=== PATIENT | female | born 1975 | race Caucasian/White ===

== ENCOUNTER 2017-05-03 07:37 | Inpatient (IN) | payer MEDICAID ==
[~2017-05-03] VITALS: Ht 154.9 cm; Wt 74.8 kg
[2017-05-03] MEDS ORDERED: DEXT 5%/LR + PITOCIN 20UNITS/L 1,000 ML IV SCH ×3 (08:41→22:15)
[2017-05-03] MEDS ORDERED: CARBOPROST TROMETHAMINE 250 MCG/ML AMPUL IM PRN (08:45)
[2017-05-03] MEDS ORDERED: RHO(D) IMMUNE GLOBULIN 300 MCG/SYR IM ONE (08:45)
[2017-05-03] MEDS ORDERED: NALOXONE HCL 0.4 MG/ML 1ML VIAL IM PRN (08:45)
[2017-05-03] MEDS ORDERED: METHYLERGONOVINE MALEATE 0.2 MG/ML IM PRN (08:45)
[2017-05-03] MEDS ORDERED: LIDOCAINE HCL 1% 20ML VIAL (Pyxis) INJ INFIL SCH (08:45)
[2017-05-03] MEDS: LACTATED RINGERS 1,000 ML IV SCH ×2 (10:28→15:45)
[2017-05-03] MEDS: MISOPROSTOL 100MCG TABLET VG SCH ×2 (10:29→14:28)
[2017-05-03 10:35] LABS: BASOPHILS % 0.6 % (0.0-2.0); EOSINOPHILS % 0.9 % (0.0-5.0); HEMATOCRIT. 32.6 % (36.0-48.0); HEMOGLOBIN. 10.7 g/dL (12.0-16.0); LYMPHOCYTES % 18.7 % (20.0-50.0); MEAN CORPUSCULAR HEMOGLOBIN 25.3 pg (28.0-32.0); MEAN CORPUSCULAR VOLUME 76.9 fL (81.0-99.0); MONOCYTES % 10.4 % (2.0-8.0); NEUTROPHILS % 69.4 % (40.0-76.0); PLATELET 233 x1000/uL (130-400); RED BLOOD CELL COUNT 4.24 mill/uL (4.2-5.4); RED CELL DISTRIBUTION WIDTH 27.1 % (11.6-14.6)
[2017-05-03 10:42] LABS: CLARITY URINE CLEAR (CLEAR); COLOR URINE YELLOW (YELLOW); GLUCOSE URINE NEGATIVE (NEGATIVE); KETONES URINE NEGATIVE (NEGATIVE); LEUKOCYTE ESTERASE URINE 1+ (NEGATIVE); NITRITE URINE NEGATIVE (NEGATIVE); OCCULT BLOOD URINE TRACE (NEGATIVE); PH URINE 6.5 (4.5-8.0); PROTEIN URINE TRACE (NEGATIVE); SPECIFIC GRAVITY URINE 1.024 (1.005-1.030)
[2017-05-03 10:44] LABS: INR 0.9; PARTIAL THROMBOPLASTIN TIME 24.1 sec (23.4-31.0); PROTHROMBIN TIME 9.7 sec (9.4-11.6)
[2017-05-03 11:11] LABS: *AMPHETAMINES SCREEN URINE NEGATIVE (NEGATIVE); *BARBITURATES SCREEN URINE NEGATIVE (NEGATIVE); *BENZODIAZEPINES SCREEN URINE NEGATIVE (NEGATIVE); *COCAINE SCREEN URINE NEGATIVE (NEGATIVE); CANNABINOID URINE SCREEN NEGATIVE (NEGATIVE); METHADONE URINE SCREEN NEGATIVE (NEGATIVE); OPIATES URINE SCREEN NEGATIVE (NEGATIVE); PHENCYCLIDINE URINE SCREEN NEGATIVE (NEGATIVE)
[2017-05-03 11:55] LABS: PLATELET ESTIMATE NORMAL
[2017-05-03 12:43] LABS: HEPATITIS B SURFACE ANTIGEN NEGATIVE; RUBELLA IGG 63.7 IU/mL (4.99-10)
[2017-05-03] MEDS: BUTORPHANOL TARTRATE 2 MG/ML VIAL IV PRN ×2 (15:58→20:14)
[2017-05-03] MEDS ORDERED: BENZOCAINE/LANOLIN/ALOE VERA SPRAY TOP PRN (22:15)
[2017-05-03] MEDS ORDERED: IBUPROFEN 400MG TABLET PO PRN (22:15)
[2017-05-03] MEDS ORDERED: ACETAMINOPHEN WITH CODEINE 300/30MG TABLET PO PRN (22:15)
[2017-05-03] MEDS ORDERED: RHO(D) IMMUNE GLOBULIN 300 MCG/SYR IM PRN (22:15)
[2017-05-04] MEDS: IBUPROFEN 800MG TABLET PO PRN ×2 (00:58→20:11)
[2017-05-04 01:00] VITALS: BP 102/52
[2017-05-04 02:00] VITALS: BP 101/55
[2017-05-04 04:00] VITALS: BP 105/54
[2017-05-04 06:44] LABS: BASOPHILS % 0.5 % (0.0-2.0); EOSINOPHILS % 0.2 % (0.0-5.0); HEMATOCRIT. 27.6 % (36.0-48.0); HEMOGLOBIN. 8.9 g/dL (12.0-16.0); LYMPHOCYTES % 11.1 % (20.0-50.0); MEAN CORPUSCULAR HEMOGLOBIN 25.1 pg (28.0-32.0); MEAN CORPUSCULAR VOLUME 77.5 fL (81.0-99.0); MEAN PLATELET VOLUME 9.5 fl (7.4-10.4); MONOCYTES % 8.8 % (2.0-8.0); NEUTROPHILS % 79.4 % (40.0-76.0); PLATELET 144 x1000/uL (130-400); RED BLOOD CELL COUNT 3.56 mill/uL (4.2-5.4)
[2017-05-04 11:54] VITALS: BP 109/61
[2017-05-04 20:00] VITALS: BP 104/64
[2017-05-05 05:00] VITALS: BP 102/61
[2017-05-05 07:45] VITALS: BP 99/44
[2017-05-05 08:12] VITALS: BP 102/61
[2017-05-05] MEDS: IBUPROFEN 800MG TABLET PO PRN (08:12)
[2017-05-05] MEDS ORDERED: INFLUENZA VIRUS VACCINE 0.5ML SYR IM ONE (10:00)
== END 2017-05-05 13:30 | disposition home or self-care (01) | DRG 560 ==
LOC: OBSVTOIN 07:37 → L&D 07:37 → 7EST PP/OB 05-04 01:30
PROVIDERS: ADMIT Obstetrics & Gynecology; ATTEND Obstetrics & Gynecology
PROC: 10E0XZZ Delivery of Products of Conception, External Approach (ICD-10-PCS; 2017-05-03)
PROC: 10907ZC Drainage of Amniotic Fluid, Therapeutic from Products of Conception, Via Natural or Artificial Opening (ICD-10-PCS; 2017-05-03)
PROC: 0KQM0ZZ Repair Perineum Muscle, Open Approach (ICD-10-PCS; principal; 2017-05-03 21:58)
DX: O70.1 Second degree perineal laceration during delivery (principal); D64.9 Anemia, unspecified; O09.523 Supervision of elderly multigravida, third trimester; O90.81 Anemia of the puerperium; Z3A.40 40 weeks gestation of pregnancy; Z37.0 Single live birth
CPT/HCPCS: 36415; 80305; 81001; 85025; 85610; 85730; 86592; 86703; 86762; 86850; 86900; 87340; 90686; 99281; G0378; J0595; J2590; J3490; J7120